=== PATIENT | female | born 1960 | race Caucasian/White ===

== ENCOUNTER → 2016-07-28 | Day surgery (SDC) | payer MEDICARE ==
[~2016-07-28] MED LIST: ALA1CRE TOP; ALBU6.7H INH; B-COCAP6 PO; BUPIVACAINE HCL PF 0.75% 30 ML VIAL ONE; CHOL1TAB35 PO; CYMB60CA PO; FEXO180T PO; GABA800T PO; LACTATED RINGER'S 1000 ML INJ 1,000 ML ONE; LIDO1PAD52 TOPICAL; LIDOCAINE 1.5%/EPINEPHrine 1:200,000 PF SOLN 30 ML AMP ONE; LISI10TA3 PO; LORA1TAB12 PO; MIDAZOLAM HCL 5 MG/ML VIAL (1 ML) ONE; MULTTAB67 PO; NICO21DI2 T-DERMAL; OMEP20TA PO; ONDANSETRON HCL 4 MG/2 ML VIAL IV PUSH ONE; OXYC-433 PO; PROPOFOL 200 MG/20 ML AMP IV ONE; RANI150C PO; STOO100C PO; VOLTAREN 1% TOP; ceFAZolin 2 GM PREMIX 50 ML ONE
--- NOTE | 2016-07-28 14:48 | MP ---
cc: EDD SANCHEZ DATE OF SURGERY 07/28/2016 PREOPERATIVE DIAGNOSIS Left shoulder rotator cuff tear, left shoulder calcific tendinosis, left shoulder impingement syndrome, left shoulder labral tear. POSTOPERATIVE DIAGNOSES Left shoulder rotator cuff tear, left shoulder calcific tendinosis, left shoulder impingement syndrome, left shoulder labral tear. PROCEDURE Left shoulder arthroscopic rotator cuff repair, left shoulder arthroscopic subacromial decompression, left shoulder arthroscopic extensive debridement of labral tear and calcific tendinosis. SURGEON Dr. Edd Sanchez [employer]BB[employer] INSPECTOR BORIS Malin ANESTHESIA General with an anterior interscalene block. ESTIMATED BLOOD LOSS Less than 10 cc COMPLICATIONS None IMPLANTS USED Arthrex JUSTIFICATION This patient is a 56-year-old female with a history of increasing pain in regards to her left shoulder. She has failed conservative treatment. Clinical exam as well as MRI confirmed the above-named findings. The patient counseled as to the risks, benefits and alternatives to the above-named proposed surgical procedure. She did wish to proceed with surgery. PROCEDURE IN DETAIL A written consent was obtained. The patient was identified by name, taken to the operating room, placed supine position and general anesthesia was administered as well as 2 grams of IV Ancef. The patient was carefully turned to a right lateral decubitus position. A lateral arm roll was placed. All bony prominences and pressure points were well padded. An arthroscopic arm costa was gently applied to the left upper extremity with 10 pounds of traction placed. The left shoulder was prepped and draped using Isopropyl alcohol, Hibiclens solution and DuraPrep solution. After a time-out was performed, a standard anterior and posterior glenohumeral arthroscopic portal was established. The glenohumeral joint revealed extensive labral tearing on the anterior, superior and posterior portions. An arthroscopic shaver was introduced from the anterior portal. An attempted debridement of the labrum was performed from the anterior, superior, and posterior portions to include 3 o'clock, 12 o'clock and 9 o'clock positions. Minimal chondromalacia of the glenohumeral joint was note. There was evidence of a full thickness rotator cuff supraspinatus tear visualized by the glenohumeral joint. Attention was turned to the subacromial space where there was evidence of impingement with bursitis. An arthroscopic shaver was introduced from a lateral portal. A subacromial decompression was performed. The shaver was used to perform extensive bursectomy. An arthroscopic bur was used to perform an acromioplasty and the cautery device was used to release the coracoacromial ligament. A spinal needle was used to help with debridement of the calcific tendinosis, as well as an arthroscopic shaver. The rotator cuff tendon tear was elevated and the greater tuberosity decorticated in preparation for rotator cuff tendon repair. An Arthrex scorpion device was used to shuttle #2 FiberTape suture in a horizontal mattress pattern through the torn tendon and #2 FiberLink suture was placed posteriorly. The sutures were then placed through the eyelet of an Arthrex 4.75 mm Bio SwiveLock anchor. The sutures were tensioned and anchored and inserted into the greater tuberosity. There was good purchase and fixation after insertion of the anchor and the rotator cuff tear repair was probed and noted to have good stability. At the conclusion of the surgical procedure, the arthroscopic portals were closed with 3-0 Prolene suture. Sterile dressings were applied. The patient was placed in a sling and swath immobilizer. She tolerated the procedure well. No intraoperative complications noted. Gomez Castanon, physician assistant professor of music certified, was present during the entire procedure to include patient positioning and the procedure itself. The medical necessity of a physician assistant professor of music was indicated in this case due to complexity of the procedure. He assisted with appropriate manipulation of the arm and also manipulation of the camera. He assisted with shuttling of sutures and also implantation of suture anchor for purposes of rotator cuff tendon repair. MD MONAE Stern/SONNY /11:42 AM /2:39 PM
== END | disposition home or self-care (01) ==
LOC: ESDC 09:54
PROVIDERS: ATTEND Orthopaedic Surgery Sports Medicine
DX: M75.122 Complete rotator cuff tear or rupture of left shoulder, not specified as traumatic (principal); M75.42 Impingement syndrome of left shoulder; M75.32 Calcific tendinitis of left shoulder; S43.402A Unspecified sprain of left shoulder joint, initial encounter
CPT/HCPCS: 01630; 01991; 29823; 29826; 29827; 64417; C1713; J0690; J2250; J2405; J7120